=== PATIENT | male | born 1940 | race Caucasian/White ===

== ENCOUNTER 2019-01-04 15:49 | Outpatient (CLI) | payer OTHER ==
[2015-11-04 11:24] VITALS: BMI 20.9
== END 2019-01-04 15:50 | disposition home or self-care (01) ==
LOC: NONPT 15:49
PROVIDERS: ATTEND Family Medicine
DX: N30.01 Acute cystitis with hematuria (principal); Z51.81 Encounter for therapeutic drug level monitoring; Z79.899 Other long term (current) drug therapy
CPT/HCPCS: 80306; 81001; 87086

== ENCOUNTER 2019-04-27 10:41 | Outpatient (CLI) ==
[2015-11-04 11:24] VITALS: BMI 20.9
== END 2019-04-27 10:59 | disposition short-term general hospital (02) ==
LOC: AMBL 10:41
PROVIDERS: ATTEND Emergency Medicine
DX: S61.412A Laceration without foreign body of left hand, initial encounter (principal); S51.812A Laceration without foreign body of left forearm, initial encounter; R10.31 Right lower quadrant pain; G30.9 Alzheimer's disease, unspecified; F02.80 Dementia in other diseases classified elsewhere, unspecified severity, without behavioral disturbance, psychotic disturbance, mood disturbance, and anxiety; W10.9XXA Fall (on) (from) unspecified stairs and steps, initial encounter